=== PATIENT | male | born 1990 | race Caucasian/White ===

== ENCOUNTER 2024-12-08 14:50 | Emergency (ER) | payer MEDICAID ==
[~2024-12-08] VITALS: Ht 188 cm; Wt 106.6 kg
[2024-12-08 15:24] VITALS: TEMP 98.5
[2024-12-08] MEDS: IV NS 0.9% 1,000 ML BAG IV ONE (16:20)
[2024-12-08] MEDS ORDERED: METOCLOPRAMIDE HCL 10 MG/2 ML VIAL ONE (16:23)
[2024-12-08] MEDS ORDERED: KETOROLAC TROMETHAMINE 15 MG/ML VIAL ONE (16:23)
[2024-12-08 16:28] LABS: PLATELET COUNT (AUTO) 249 K/uL (150-450); RED BLOOD CELL COUNT(AUTO) 4.99 MIL/uL (4.5-6.0); RED CELL DISTRIBUTION WIDTH 12.8 % (11.5-15.0); WHITE BLOOD COUNT (AUTO) 6.9 K/uL (4.3-11.0)
[2024-12-08] MEDS: KETOROLAC TROMETHAMINE 15 MG/ML VIAL IV ONE (16:28)
[2024-12-08] MEDS: METOCLOPRAMIDE HCL 10 MG/2 ML VIAL IV ONE (16:28)
[2024-12-08 16:38] LABS: CALCIUM, SERUM 8.7 mg/dL (8.5-10.1); SODIUM SERUM 140.0 mmol/L (136-145)
[2024-12-08 16:39] LABS: CREATININE 1.0 mg/dL (0.6-1.3); UREA NITROGEN, BLOOD 12.0 mg/dL (7-18)
[2024-12-08 16:44] LABS: ASPARTATE AMINOTRANSFERASE 31.0 U/L (15-37); TOTAL PROTEIN, SERUM 8.3 g/dL (6.4-8.2)
[2024-12-08] MEDS ORDERED: IBUP-1490 PO (17:00)
[2024-12-08] MEDS ORDERED: METH-647 PO (17:00)
[2024-12-08] MEDS ORDERED: DICL100G34 TP (17:00)
[2024-12-08 17:26] VITALS: BP 135/85; O2SAT 94
== END 2024-12-08 17:11 | disposition home or self-care (01) ==
LOC: ER 15:05
DX: R51.9 Headache, unspecified (principal); K20.90 Esophagitis, unspecified without bleeding; G47.30 Sleep apnea, unspecified; Z90.49 Acquired absence of other specified parts of digestive tract
CPT/HCPCS: 99284; 96374; 96361; 96375; 85025; 80048; 83690; 80076; 36415; J1885; J2765; J7030